=== PATIENT | female | born 1935 | race Caucasian/White ===

== ENCOUNTER 2017-04-16 10:45 | Outpatient (CLI) | payer OTHER ==
[2017-04-16 11:33] LABS: eGFR (African) > 60; eGFR (Non-African) > 60
== END 2017-04-16 10:46 ==
LOC: LAB 10:45
PROVIDERS: ATTEND Family Medicine
DX: E11.9 Type 2 diabetes mellitus without complications (principal); E03.9 Hypothyroidism, unspecified
CPT/HCPCS: 36415; 80053; 80061; 83036; 84443

== ENCOUNTER 2017-08-20 10:58 | Outpatient (CLI) | payer OTHER ==
[2017-08-20 11:38] LABS: eGFR (African) > 60; eGFR (Non-African) > 60
== END 2017-08-20 11:00 ==
LOC: LAB 10:58
PROVIDERS: ATTEND Family Medicine
DX: E11.9 Type 2 diabetes mellitus without complications (principal); R19.7 Diarrhea, unspecified
CPT/HCPCS: 36415; 80048; 83036

== ENCOUNTER 2017-11-20 09:28 | Outpatient (CLI) | payer OTHER | END 2017-11-20 09:30 | LOC: LAB 09:28 | PROVIDERS: ATTEND Family Medicine | DX: E11.9 Type 2 diabetes mellitus without complications (principal) | CPT/HCPCS: 36415; 83036 ==

== ENCOUNTER 2018-12-10 13:50 | Outpatient (CLI) | payer OTHER | END 2018-12-10 13:53 | LOC: LABRHC 13:50 | PROVIDERS: ATTEND Family Medicine | DX: E11.9 Type 2 diabetes mellitus without complications (principal) | CPT/HCPCS: 36415; 83036 ==